=== PATIENT | male | born 1970 | race Two or more races ===

== ENCOUNTER 2021-01-15 11:07 | Outpatient (CLI) | payer MEDICAID | END 2021-01-15 23:59 | disposition home or self-care (01) | LOC: LAB 11:07 | PROVIDERS: ATTEND Orthopaedic Surgery | DX: Z01.812 Encounter for preprocedural laboratory examination (principal); Z20.822 Contact with and (suspected) exposure to COVID-19 | CPT/HCPCS: C9803; U0003 ==

== ENCOUNTER 2021-01-21 06:39 | Day surgery (SDC) | payer MEDICAID ==
[~2021-01-21] VITALS: Ht 172.7 cm; Wt 81.6 kg
--- NOTE | 2021-01-21 08:00 | NUR ---
RN OPENING NOTE PT AWAKE IN BED RESTING. ON RA WITH NO SOB OR RESPIRATORY DISTRESS PRESENT. A/O X3 AND [facility] [employer] SPEAKING. NO COMPLAINT OF PAIN OR NAUSEA. 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 ON BEDREST WITH URINAL AT BEDSIDE. SKIN IS INTACT. NPO FOR SURGERY. CONSENTS IN CHART AND CHECKLIST DONE.IV PRESENT ON L HAND 22G AND FLUSHES WELL. LABS AND ORDERS REVIEWED. SAFETY MEASURES IN PLACE. SIDE RAILS RAISED. BED LOWERED. CALL LIGHT WITHIN REACH. WILL CONTINUE TO MONITOR.
[2021-01-21 08:09] VITALS: BP 113/71
--- NOTE | 2021-01-21 08:47 | NUR ---
RN NOTE PT DOWN FOR SURGERY. CONSENTS AND CHECKLIST IN CHART
[2021-01-21] MEDS ORDERED: MORPHINE SULFATE/PF 10 MG/10ML (1MG/ML) AMPUL ONE (09:12)
[2021-01-21] MEDS ORDERED: LIDOCAINE 1% INJ 50 ML MDV IJ ONE (09:13)
[2021-01-21] MEDS ORDERED: KETOROLAC TROMETHAMINE INJ 30 MG/ML VIAL ONE (10:45)
[2021-01-21 11:20] VITALS: BP 123/68
[2021-01-21] MEDS: HYDROCODONE/APAP 10/325MG TABLET PO PRN ×2 (14:00→14:14)
--- NOTE | 2021-01-21 14:17 | NUR ---
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 EXITCARE EDUCATION UTILIZED AND EDUCATION GIVEN TO PT. POST OP EDUCATION GIVEN. F/U WITH DR MEYERS WITHIN 1 WEEK. IV LINE REMOVED. ID BANDS REMOVED. BELONGINGS CHECKED AND WITH PT. TRANSPORTED HOME VIA PRIVATE CAR ACCOMPANIED BY .
== END 2021-01-21 19:00 | disposition home or self-care (01) ==
LOC: DS 06:39 → UNDOADMIN 06:41 → MED 06:41 → UNDODISIN 14:10 → DS 19:00
PROVIDERS: ATTEND Orthopaedic Surgery
DX: S83.211A Bucket-handle tear of medial meniscus, current injury, right knee, initial encounter (principal); X58.XXXA Exposure to other specified factors, initial encounter; Y93.89 Activity, other specified; Y92.89 Other specified places as the place of occurrence of the external cause; Y99.8 Other external cause status; M94.211 Chondromalacia, right shoulder
CPT/HCPCS: 29881; A4217; A6253; J0690; J1885; J2274; J2405; J2704; J3490 ×3; J7030; G0378